=== PATIENT | male | born 1955 | race Two or more races ===

== ENCOUNTER → 2020-08-13 | Emergency (ER) | payer BC, OTHER ==
[~2020-08-13] VITALS: Ht 167.6 cm; Wt 122.5 kg
[2020-08-13 21:12] VITALS: BP 151/93
== END | disposition left against medical advice (07) ==
LOC: ER 20:36
DX: S51.851A Open bite of right forearm, initial encounter (principal); Z53.21 Procedure and treatment not carried out due to patient leaving prior to being seen by health care provider; W54.0XXA Bitten by dog, initial encounter; Y93.89 Activity, other specified; Y92.89 Other specified places as the place of occurrence of the external cause; Y99.8 Other external cause status